=== PATIENT | female | born 1990 | race Hispanic/Latino ===

== ENCOUNTER → 2019-11-19 | Day surgery (SDC) | payer OTHER ==
[2019-11-10 10:41] LABS: BASOPHILS % 0.4 % (0.0-1.0); EOSINOPHILS # (AUTO) 0.1 (0.0-0.4); EOSINOPHILS % 1.8 % (0.0-6.0); HEMATOCRIT 41.2 % (34.2-44.1); HEMOGLOBIN 13.1 g/dL (12.0-16.0); LYMPHOCYTES # (AUTO) 2.4 (1.0-3.2); LYMPHOCYTES % 36.1 % (18.0-39.1); MEAN CORPUSCULAR HEMOGLOBIN 26.9 pg (28-32); MEAN CORPUSCULAR HGB CONC 31.8 g/dL (31-35); MEAN CORPUSCULAR VOLUME 84.6 fL (81-99); MONOCYTES # (AUTO) 0.5 (0.2-0.8); MONOCYTES % 7.4 % (4.4-11.3); NEUTROPHILS # (AUTO) 3.7 (2.1-6.9); PLATELET COUNT 251 x10e3/uL (140-360); RED BLOOD COUNT 4.87 x10e6/uL (3.6-5.1); RED CELL DISTRIBUTION WIDTH 13.3 % (11.7-14.4)
[2019-11-10 10:48] LABS: CLARITY,URINE CLEAR (CLEAR); COLOR,URINE YELLOW (YELLOW)
[2019-11-10 10:49] LABS: BILIRUBIN,URINE NEGATIVE (NEGATIVE); KETONES,URINE NEGATIVE (NEGATIVE); LEUKOCYTE ESTERASE ,URINE TRACE (NEGATIVE); NITRITE,URINE NEGATIVE (NEGATIVE); PROTEIN,URINE DIPSTICK NEGATIVE (NEGATIVE); URINE UROBILINOGEN 0.2 mg/dL (0.2 - 1)
[2019-11-10 11:02] LABS: ALANINE AMINOTRANSFERASE 17 IU/L (0-55); ALBUMIN 4.2 g/dL (3.5-5.0); ALBUMIN/GLOBULIN RATIO 1.2 (0.8-2.0); ALKALINE PHOSPHATASE 87 IU/L (40-150); ANION GAP 13.1 mmol/L (8-16); BLOOD UREA NITROGEN 10 mg/dL (7-26); BUN/CREATININE RATIO 13 (6-25); CALCIUM 9.4 mg/dL (8.4-10.2); CARBON DIOXIDE 25 mmol/L (22-29); CHLORIDE 108 mmol/L (98-107); CREATININE, SERUM 0.77 mg/dL (0.57-1.11); EST GLOMERULAR FILTRATION RATE > 60 ML/MIN (60-); GLUCOSE 82 mg/dL (74-118); POTASSIUM 4.1 mmol/L (3.5-5.1); SODIUM 142 mmol/L (136-145)
[~2019-11-19] MED LIST: ACETAMINOPHEN 1000 MG/100 ML IV ONE; BUPIVACAINE 0.25% 30ML SDV INJ ONE; DEXAMETHASONE SOD PHOS INJ 4 MG/ML VIAL ONE; FENTANYL CITRATE/PF 100MCG/2 ML INJ ONE; LIDOCAINE HCL 2% LOCAL INJ 5 ML SDV VIAL INJ ONE; MIDAZOLAM HCL 2 MG/2 ML VIAL ONE; ONDANSETRON HCL INJ 2MG/ML 2ML 2 MG/ML VIAL ONE; PROPOFOL IV EMULSION 10 MG/ML 20 ML VIAL ONE; ROCURONIUM BROMIDE 10 MG/ML 5ML VIAL ONE; SEVOFLURANE INHAL SOLN 250 ML PEN BTL ONE; TYLENOL WITH C1 EACH PO
--- OUTSIDE RECORDS SUMMARY | 2019-11-19 05:43 | XMS REPORT ---
Author [facility] Address Unknown Phone Unavailable Care Team Providers Care Wind Instrument Repairer Name Role Phone UNKNOWN, REFFERING PP Unavailable LAURA DIAS Unavailable Unavailable Payers Payer Name Policy Type Policy Number Effective Date Expiration Date Problems This patient has no known problems. Allergies, Adverse Reactions, Alerts Allergy Name Allergy Type Status Severity Reaction(s) Onset Date Inactive Date Treating Clinician Comments No Known Allergies DA Active U 2019-10-13 00:00:00 No Known Allergies DA Active U 2018-03-21 00:00:00 Medications This patient has no known medications. Encounters Start Date/Time End Date/Time Encounter Type Admission Type Attending Clinicians Care Facility Care Department Encounter ID 2017-07-30 10:01:00 2017-07-30 10:01:00 Emergency E LAURA DIAS [facility] [id number] Results Test Description Test Time Test Comments Text Results Atomic Results Result Comments - US ABDOMEN LTD 2019-10-13 18:44:00 Name: CONRADDOUGLAS IRVING [employer] : 1990 Age/S: 29 / F [address] [facility] Unit #: [id number] Loc: KIERA [place] [address] Phys: Markell Kramer NP Acct: [id number] Dis Date: Status: REG ER PHONE #: [phone] Exam Date: 10/13/2019 1843 FAX #: [phone] Reason: Abdominal Pain EXAMS: CPT CODE: [id number] ABDOMEN LTD [id number] REASON FOR EXAM: Abdominal Pain EXAM ORDER DATE: 10/13/2019 5:56 PM Ordering: Markell Kramer NP Attending:Ld Genao MD Location: PROCEDURE: - US ABDOMEN LTD FINDINGS: The liver is unremarkable. There is no evidence of focal mass identified. The pancreas is within normal limits. The right kidney measures 8.1 x 3.7 cm. There is no evidence of hydronephrosis. There is no evidence of nephrolithiasis. There is no evidence of renal mass. The gallbladder is contracted and full of gallstones. No evidence of gallbladder wall thickening or pericholecystic fluid. The common bile duct measures 0.3 cm. There is no evidence of ascites. The aorta and IVC are within normal limits. The portal vein is patent with hepatopetal flow IMPRESSION: C ontracted gallbladder full of gallstones at 1844 Reported and signed by: Jose Luis Jimenez M.D. CC: Ld Genao MD; Viviane De Paz MD; Markell Kramer NP Technologist: Ninfa Michaels RDMS Trnscb Date/Time: 10/13/2019 (1843) [email or web address] Orig Print D/T: S: 10/13/2019 (1847) Probe: PAGE 1 Signed Report BASIC METABOLIC PANEL 2019-10-13 18:39:00 SODIUM (test code=NA) 141 mmol/L 136-145 POTASSIUM (test code=K) 3.7 mmol/L 3.5-5.1 CHLORIDE (test code=CL) 107.0 mmol/L 98-107 CARBON DIOXIDE (test code=CO2) 28.0 mmol/L 21-32 ANION GAP (test code=GAP) 9.7 10-20 GLUCOSE (test code=GLU) 90 mg/dL 74-106 BLOOD UREA NITROGEN (test code=BUN) 12 mg/dL 7-18 GLOMERULAR FILTRATION RATE (test code=GFR) 53 mL/min >=60 Estimated GFR by using Modified MDRD formula.Chronic kidney disease is defined as either kidney damageor GFR <60 mL/min/1.73 m2 for >3 months. CREATININE (test code=CREAT) 1.20 mg/dL 0.55-1.02 Note change in reference range due to change in reagent. BUN/CREATININE RATIO (test code=BUN/CREA) 10.0 10-20 CALCIUM (test code=CA) 9.3 mg/dL 8.5-10.1 HEPATIC FUNCTION [id number] 18:39:00* Test Item Value Reference Range Comments TOTAL PROTEIN (test code=PROT) 8.2 gram/dL 6.4-8.2 ALBUMIN (test code=ALB) 3.8 g/dL 3.4-5.0 GLOBULIN (test code=GLOB) 4.4 gram/dL 2.7-4.2 ALBUMIN/GLOBULIN RATIO (test code=A/G) 0.9 0.75-1.50 BILIRUBIN TOTAL (test code=BILT) 0.20 mg/dL 0.0-1.0 BILIRUBIN DIRECT (test code=BILD) 0.06 mg/dL 0.0-0.20 SGOT/AST (test code=AST) 14 IUnit/L 15-37 SGPT/ALT (test code=ALT) 25 IUnit/L 12-78 ALKALINE PHOSPHATASE TOTAL (test code=ALKP) 109 IUnit/L 45-117 Note change in reference range due to change in reagent. [id number] 18:39:00* Test Item Value Reference Range Comments LIPASE (test code=LIP) 160 U/L 73.0-393.0 HCG SERUM [id number] 18:39:00* Test Item Value Reference Range Comments HCG SERUM QUAL (test code=HCGQL) NEGATIVE BASIC METABOLIC [id number] 18:39:00* Test Item Value Reference Range Comments SODIUM (test code=NA) 141 mmol/L 136-145 POTASSIUM (test code=K) 3.7 mmol/L 3.5-5.1 CHLORIDE (test code=CL) 107.0 mmol/L 98-107 CARBON DIOXIDE (test code=CO2) 28.0 mmol/L 21-32 ANION GAP (test code=GAP) 9.7 10-20 GLUCOSE (test code=GLU) 90 mg/dL 74-106 BLOOD UREA NITROGEN (test code=BUN) 12 mg/dL 7-18 GLOMERULAR FILTRATION RATE (test code=GFR) 53 mL/min >=60 Estimated GFR by using Modified MDRD formula.Chronic kidney disease is defined as either kidney damageor GFR <60 mL/min/1.73 m2 for >3 months. CREATININE (test code=CREAT) 1.20 mg/dL 0.55-1.02 Note change in reference range due to change in reagent. BUN/CREATININE RATIO (test code=BUN/CREA) 10.0 10-20 CALCIUM (test code=CA) 9.3 mg/dL 8.5-10.1 HEPATIC FUNCTION [id number] 18:39:00* Test Item Value Reference Range Comments TOTAL PROTEIN (test code=PROT) 8.2 gram/dL 6.4-8.2 ALBUMIN (test code=ALB) 3.8 g/dL 3.4-5.0 GLOBULIN (test code=GLOB) 4.4 gram/dL 2.7-4.2 ALBUMIN/GLOBULIN RATIO (test code=A/G) 0.9 0.75-1.50 BILIRUBIN TOTAL (test code=BILT) 0.20 mg/dL 0.0-1.0 BILIRUBIN DIRECT (test code=BILD) 0.06 mg/dL 0.0-0.20 SGOT/AST (test code=AST) 14 IUnit/L 15-37 SGPT/ALT (test code=ALT) 25 IUnit/L 12-78 ALKALINE PHOSPHATASE TOTAL (test code=ALKP) 109 IUnit/L 45-117 Note change in reference range due to change in reagent. [id number] 18:39:00* Test Item Value Reference Range Comments LIPASE (test code=LIP) 160 U/L 73.0-393.0 HCG SERUM [id number] 18:39:00* Test Item Value Reference Range Comments HCG SERUM QUAL (test code=HCGQL) NEGATIVE NEGATIVE This HCGQL test is NOT applicable for MALE patients.Check with nurse about probable order error.If Tumor Marker Test needed, nurse should order test "HCGTU"(Test #550.37026) URINALYSIS [id number] 18:36:00* Test Item Value Reference Range Comments UA COLOR (test code=COLU) Light-Yellow YELLOW UA APPEARANCE (test code=APPU) CLEAR CLEAR UA GLUCOSE DIPSTICK (test code=DGLUU) NEGATIVE mg/dL NEGATIVE UA BILIRUBIN DIPSTICK (test code=BILU) NEGATIVE mg/dL NEGATIVE UA KETONE DIPSTICK (test code=KETU) NEGATIVE mg/dL NEGATIVE UA SPECIFIC GRAVITY (test code=SGU) 1.013 1.001-1.035 UA BLOOD DIPSTICK (test code=ALISIA) Negative mg/dL NEGATIVE UA PH DIPSTICK (test code=WOLFGANG) 5.0 5.0-8.0 UA PROTEIN DIPSTICK (test code=PROU) NEGATIVE mg/dL NEGATIVE UA UROBILINIOGEN DIPSTICK (test code=URO) Normal mg/dL NEGATIVE UA NITRITE DIPSTICK (test code=JAMES) NEGATIVE NEGATIVE UA LEUKOCYTE ESTERASE W REFLEX (test code=LEUUR) 250 Maru/uL (2+) Maru/uL NEGATIVE UA WBC (test code=WBCU) 6-10 per HPF 0-5 UA RBC (test code=RBCU) 0-2 #/HPF 0-5 UA EPITHELIAL CELLS (test code=EPIU) FEW per HPF FEW UA BACTERIA (test code=BACU) FEW #/HPF NONE UA MUCUS (test code=MUCU) FEW #/LPF FEW Urine Source? Clean CatchBASIC METABOLIC [id number] 18:30:00* Test Item Value Reference Range Comments SODIUM (test code=NA) 141 mmol/L 136-145 POTASSIUM (test code=K) 3.7 mmol/L 3.5-5.1 CHLORIDE (test code=CL) 107.0 mmol/L 98-107 CARBON DIOXIDE (test code=CO2) mmol/L 21-32 ANION GAP (test code=GAP) 10-20 GLUCOSE (test code=GLU) mg/dL 74-106 BLOOD UREA NITROGEN (test code=BUN) mg/dL 7-18 GLOMERULAR FILTRATION RATE (test code=GFR) mL/min >=60 CREATININE (test code=CREAT) mg/dL 0.55-1.02 BUN/CREATININE RATIO (test code=BUN/CREA) 10-20 CALCIUM (test code=CA) mg/dL 8.5-10.1 HEPATIC FUNCTION [id number] 18:30:00* Test Item Value Reference Range Comments TOTAL PROTEIN (test code=PROT) gram/dL 6.4-8.2 ALBUMIN (test code=ALB) g/dL 3.4-5.0 GLOBULIN (test code=GLOB) gram/dL 2.7-4.2 ALBUMIN/GLOBULIN RATIO (test code=A/G) 0.75-1.50 BILIRUBIN TOTAL (test code=BILT) mg/dL 0.0-1.0 BILIRUBIN DIRECT (test code=BILD) mg/dL 0.0-0.20 SGOT/AST (test code=AST) IUnit/L 15-37 SGPT/ALT (test code=ALT) IUnit/L 12-78 ALKALINE PHOSPHATASE TOTAL (test code=ALKP) IUnit/L 45-117 [id number] 18:30:00* Test Item Value Reference Range Comments LIPASE (test code=LIP) U/L 73.0-393.0 HCG SERUM [id number] 18:30:00* Test Item Value Reference Range Comments HCG SERUM QUAL (test code=HCGQL) NEGATIVE CBC W/O [id number] 18:21:00* Test Item Value Reference Range Comments WHITE BLOOD CELL (test code=WBC) 9.9 K/mm3 4.5-12.5 RED BLOOD CELL (test code=RBC) 4.99 mill/mm3 3.7-5.2 HEMOGLOBIN (test code=HGB) 13.3 gram/dL 11.5-15.5 HEMATOCRIT (test code=HCT) 42.0 % 36.0-46.0 MEAN CELL VOLUME (test code=MCV) 84.2 fL 80-98 MEAN CELL HGB (test code=MCH) 26.7 picogram 27.0-33.0 MEAN CELL HGB CONCETRATION (test code=MCHC) 31.7 gram/dL 33.0-36.0 RED CELL DISTRIBUTION WIDTH (test code=RDW) 13.2 % 11.6-16.2 PLATELET COUNT (test code=PLT) 269 K/mm3 150-450 MEAN PLATELET VOLUME (test code=MPV) 11.8 fL 6.7-11.0 [facility] [id number] 21:22:59* Test Item Value Reference Range Comments Methodology (test code=Methodology) Test-Tube(TT) Anti-A (test code=Anti-A) 4+ Anti-B (test code=Anti-B) 0 Anti-AB (test code=Anti-AB) NT Anti-D (test code=Anti-D) 4+ ABORh Retype (test code=ABORh Retype) A POS 3C ABSC [id number] 18:28:36* Test Item Value Reference Range Comments SC1 IS (test code=SC1 IS) NT SC2 IS (test code=SC2 IS) NT SC3 IS (test code=SC3 IS) NT SC1 37 (test code=SC1 37) 0 SC2 37 (test code=SC2 37) 0 SC3 37 (test code=SC3 37) 0 SC1 AHG (test code=SC1 AHG) 0 SC2 AHG (test code=SC2 AHG) 0 SC3 AHG (test code=SC3 AHG) 0 SC1 CC (test code=SC1 CC) 2+ SC2 CC (test code=SC2 CC) 2+ SC3 CC (test code=SC3 CC) 2+ Antibody Screen (3C) (test code=Antibody Screen (3C)) Negative ABSC [id number] 18:15:49* Test Item Value Reference Range Comments Previous History (test code=Previous History) No Prev History BBID (test code=BBID) [id number] Methodology (test code=Methodology) Test-Tube(TT) Anti-A (test code=Anti-A) 4+ Anti-B (test code=Anti-B) 0 Anti-D (test code=Anti-D) 4+ DCon (test code=DCon) NT A1 (test code=A1) 0 B cells (test code=B cells) 4+ ABORh (test code=ABORh) A POS US OB Less Thn 14 wks w/TVS if [id number] 15:29:13Patient: DOUGLAS COOPER Date/Time04/22/2019 15:00 CDTReason for ExamVaginal bleedingReportTRANSABDOMINAL AND TRANSVAGINAL PELVIC SONOGRAMLOCATION CODE: R 16HISTORY: Vaginal bleeding. Spontaneous as per patient. LMP: 02/24/2019. G 4, P 1, AB 2.TECHNIQUE: [facility] sonographic images are provided for interpretation. Transvaginal and transa bdominal approaches.FINDINGS:The uterus measures 9 x 5.5 x 4.1 cm with a 1.3 cm endometrial stripe. The endometrial is heterogeneous. There is retained fluid in the endocervix which is distended to 6 mm diameter.The right ovary measures 2 x 1.6 x 1.4 cm and the left ovary measures 2.9 x 2.1 x 1.7 cm. Complex cyst at the left ovary measuring 1.5 x 1.4 x 1.4 cm, likely with residual post luteum. Nor mal arterial flow is demonstrated to both ovaries.No evidence of free pelvic flu id.IMPRESSION:1. Complex appearance to the endometrium, thickening up to 1.3 cm, suspect residual retained products of conception. Distended endocervix to 6 mm, also with residual complex fluid.2. Complex left ovarian cyst, 1.5 cm. Suggesti ve of residual corpus luteum.3. However follow-up up serial beta hCG and repeat ultrasound as warranted. Final Dictated by: MD Michael, Omari bourne FDictated DT/TM: 04/22/2019 3:25 pmSigned by: MD Rodriguez Eniola FSigned (Electronic Signature): 04/22/2019 3:29 pmBeta HCG Quantitative 2019-04-22 14:29:53* Test Item Value Reference Range Comments HCG, Beta Quantitative (test code=HCG, Beta Quantitative) 48533.00 mIU/mL Weeks of Gestation Ranges (mIu/mL)3 weeks 5.40-72.04 weeks 10.2-7085 weeks 217- 76871 weeks 152-519720 weeks 4059-1027674 weeks 16563-8402127 weeks 48412- 62191223 weeks 49056-06316695 weeks 31847-41912526 weeks 31497-8068734 weeks 40959-4067016 weeks 8904-0769768 weeks 8240-0205201 weeks 9649-71497 Complete Blood Count with [id number] 14:09:26* Test Item Value Reference Range Comments WBC (test code=WBC) 9.8 x10 4.4-10.5 RBC (test code=RBC) 4.96 x10 3.75-5.20 Hgb (test code=Hgb) 13.4 g/dL 12.2-14.8 Hct (test code=Hct) 41.6 % 36.5-44.4 MCV (test code=MCV) 83.90 fL 80.00-100.00 MCHC (test code=MCHC) 32.20 g/dL 32.00-37.50 RDW CV (test code=RDW CV) 14.5 % 11.5-14.5 MCH (test code=MCH) 27.0 pg 27.0-32.5 Platelets (test code=Platelets) 291.0 x10 140.0-440.0 MPV (test code=MPV) 11.7 fL Slide Review (test code=Slide Review) Auto Auto Result created by [email or web address] nRBC (test code=nRBC) 0 NRBC Abs (test code=NRBC Abs) 0.00 x10 IPF (test code=IPF) 0 % Automated [id number] 14:09:26* Test Item Value Reference Range Comments Neutro Auto (test code=Neutro Auto) 63.4 % 36.0-70.0 Lymph Auto (test code=Lymph Auto) 27.9 % 12.0-44.0 Bertie Auto (test code=Bertie Auto) 6.7 % 0.0-11.0 Eos, Auto (test code=Eos, Auto) 1.2 % 0.0-7.0 Basophil Auto (test code=Basophil Auto) 0.5 % 0.0-2.0 Neutro Absolute (test code=Neutro Absolute) 6.2 x10 1.6-7.4 Lymph Absolute (test code=Lymph Absolute) 2.74 x10 .50-4.60 Bertie Absolute (test code=Bertie Absolute) .66 x10 .00-1.20 Eos Absolute (test code=Eos Absolute) 0.12 x10 0.00-0.74 Baso Absolute (test code=Baso Absolute) 0.05 x10 0.00-0.21 IG [id number] 14:09:26* Test Item Value Reference Range Comments IG (test code=IG) 0.3 % 0.0-5.0 IG Abs (test code=IG Abs) 0 x10 US OB 1ST TRIMESTER, [id number] 13:25:41US TRANSVAGINAL, US OB 1ST TRIMESTER, SINGLECLINICAL HISTORY: Vaginal bleeding; LMP 06/17/2017; beta-hCG [id number] pertechnologist notesCOMPARISON: None available.TECHNIQUE: Transabdominal and transvaginal ultrasound examination of thepelvis was performed.FINDINGS: The uterus is of normal size, shape, and echogenicity. It measures 8.9x 4.9 x 6.1 cm.A gestational sac is seen in the upper endometrial cavity. A 2.7 cmsubchorionic hemorrhage is seen along the anterior gestational sac. pole, and yolk sac are seen within the gestational sac.Mean sac diameter is 2.31 cm, which corresponds to gestational age of 7weeks, 3 daysCrown-rump length is 5.12 mm, which corresponds to gestational age of 6weeks, 2 daysFetal heart tones are present at a rate of 161 beats per minute.The bilateral ovaries are normal in size, shape, and echogenicity.Vascular flow is documented; there is no evidence of torsion. The right ovary measures 4.6 x 2.5 x 3.3 cm. The left ovary measures 1.7 x 1.4 x 1.4 cm. Approximately 2.1 cm cyst in the right ovary may be a corpus lutealcyst.No mass is seen in the cul-de-sac or bilateral adnexa. There is no freefluid.IMPRESSION:1. Findings compatible with viable intrauterine atapproximate gestational age of 6 weeks, 6 days.2. Nonspecific small subchorionic hemorrhage.3. Approximately 2.1 cm right ovarian cyst may be a c orpus luteal cyst.Recommend continued follow-up with serial beta-hCG levels and pelvicultrasound as indicated.US [id number] 13:25:41US TRANSVAGINAL, US OB 1ST TRIMESTER, SINGLECLINICAL HISTORY: Vaginal bleeding; LMP 06/17/2017; beta-hCG 42462 pertechnologist notesCOMPARISON: None available.TECHNIQUE: Transabdominal and transvaginal ultrasound examination of thepelvis was performed.FINDINGS: The uterus is of normal size, shape, and echogenicity. It measures 8.9x 4.9 x 6.1 cm.A gestational sac is seen in the upper endometrial ca vity. A 2.7 cmsubchorionic hemorrhage is seen along the anterior gestational sa c. pole, and yolk sac are seen within the gestational sac.Mean sac diameter is 2.31 cm, which corresponds to gestational age of 7weeks, 3 daysCrown-rump le ngth is 5.12 mm, which corresponds to gestational age of 6weeks, 2 daysFetal hea rt tones are present at a rate of 161 beats per minute.The bilateral ovaries are normal in size, shape, and echogenicity.Vascular flow is documented; there is no evidence of torsion. The right ovary measures 4.6 x 2.5 x 3.3 cm. The left ovary measures 1.7 x 1.4 x 1.4 cm. Approximately 2.1 cm cyst in the right ovary may be a corpus lutealcyst.No mass is seen in the cul-de-sac or bilateral adnexa. There is no freefluid.IMPRESSION:1. Findings compatible with viable intrauterine atapproximate gestational age of 6 weeks, 6 days.2. Nonspecific small subchorionic hemorrhage.3. Approximately 2.1 cm right ovarian cyst may be a c orpus luteal cyst.Recommend continued follow-up with serial beta-hCG levels and pelvicultrasound as indicated.Blood Type and [id number] 13:07:00* Test Item Value Reference Range Comments ABO type (test code=ABO) A Rh Type (test code=RH) Positive Comprehensive Metabolic [id number] 12:06:00* Test Item Value Reference Range Comments Sodium (test code=NA) 136 mmol/L 135-145 Potassium (test code=K) 4.7 mmol/L 3.5-5.1 Chloride (test code=CL) 102 mmol/L 98-105 Carbon Dioxide (test code=CO2) 23 mmol/L 22-29 Glucose (test code=GLU) 96 mg/dL 70-115 Blood Urea Nitrogen (test code=BUN) 7 mg/dL 6-20 Creatinine (test code=CREAT) 0.7 mg/dL 0.5-0.9 Calcium (test code=CA) 9.4 mg/dL 8.3-10.5 Prot Total (test code=TP) 7.4 g/dL 6.4-8.3 Albumin (test code=ALB) 4.2 g/dL 3.5-5.2 A/G Ratio (test code=AGRATIO) 1.3 Ratio Globulin (test code=GLOB) 3.2 2.9-3.1 Bili Total (test code=TBIL) 0.2 mg/dL 0.1-0.9 Alk Phos (test code=APHOS) 77 U/L 35-104 AST (test code=AST) 38 U/L 1-32 ALT (test code=ALT) 35 U/L 1-33 BUN/Creatinine Ratio (test code=BCRATIO) 10.0 Anion Gap (test code=AGAP) 11 mmol/L 7-16 Estimated GFR (test code=GFR) >60 mL/min/1.73m2 eGFR (estimated Glomerular Filtration Rate) is an estimated value,calculated from the patient's serum creatinine using the MDRD equation.It is NOT the patient's actual GFR. The eGFR provides a more clinicallyuseful measure of kidney disease than serum creatinine alone.This calculation takes sex and race into account, if the informationis provided. If the race is not provided, and the patient isAfrican-Bermudian, multiply by 1.212. If sex is not provided, and thepatient is female, multiply by 0.742. Results for patients <18 years ofage have not been validated by the MDRD study and should be interpretedwith caution.eGFR Result Interpretation:eGFR > or=60 is in the Normal RangeeGFR < 60 may mean kidney diseaseeGFR < 15 may mean kidney failureRanges recommended by the National Kidney Foundat ion,http://nkdep.nih.gov BHCG, Serum, [id number] 11:53:00* Test Item Value Reference Range Comments B hCG, Quant (test code=BHCGQT) 54623 mIU/mL Weeks of Gestation Ranges (mIU/mL)3 weeks 5.40 - 72.04 weeks 10.2 - 7085 weeks 217 - 39622 weeks 152 - 113304 weeks 4059 - 7804433 weeks 73786 - 6633333 weeks 69757 - 14421925 weeks 70370 - 23881150 weeks 05791 - 54431248 weeks 90999 - 2859281 weeks 58319 - 8712078 weeks 7689 - 2600405 weeks 6841 - 6908059 weeks 6453 - 49001 CBC with [id number] 11:52:00* Test Item Value Reference Range Comments WBC (test code=WBC) 10.3 K/cumm 4.4-10.5 RBC (test code=RBC) 4.53 M/cumm 3.75-5.20 Hemoglobin (test code=HGB) 13.3 gm/dL 12.2-14.8 Hematocrit (test code=HCT) 38.7 % 36.5-44.4 MCV (test code=MCV) 85.4 fL 80-100 MCH (test code=MCH) 29.3 pg 27.0-32.5 MCHC (test code=MCHC) 34.3 g/dL 32.0-37.5 RDW (test code=RDW) 12.5 % 11.5-14.5 Platelet Count (test code=PLTCT) 287 K/cumm 140-440 MPV (test code=MPV) 9.4 fL Diff Method (test code=DIFFM) Auto Neutrophil (test code=NEUT) 70.5 % 36-70 Lymphocyte (test code=LYMPH) 23.9 % 12-44 Monocyte (test code=MONO) 4.2 % 0-11 Eosinophil (test code=EOS) 1.1 % 0-7 Basophil (test code=BASO) 0.3 % 0-2 Neutro Abs (test code=ANEUT) 7.3 K/cumm 1.6-7.4 Lymph Abs (test code=ALYMPH) 2.5 K/cumm 0.5-4.6 Bertie Abs (test code=AMONO) 0.4 K/cumm 0.0-1.2 Eos Abs (test code=AEOS) 0.12 K/cumm 0.00-0.74 Baso Abs (test code=ABASO) 0.0 K/cumm 0.00-0.21 Urinalysis [id number] 11:30:00* Test Item Value Reference Range Comments Color (test code=COLOR) Yellow Yellow,Straw,Pl yellow Clarity (test code=CLAR) Sl Cloudy Clear Specific Darden (test code=SPGR) 1.023 1.001-1.035 pH (test code=PH) 9.0 5.0-9.0 Ketone (test code=KET) Negative mg/dL Negative Glucose (test code=GLUCUR) Negative mg/dL Negative Protein (test code=PROT) Negative mg/dL Negative Bilirubin (test code=BILI) Negative mg/dL Negative Occult Blood (test code=UDOB) Large Negative Urobilinogen (test code=UROB) 0.2 mg/dL 0.2-1.0 Nitrite (test code=NIT) Negative Negative Leuk Esterase (test code=LEUK) Moderate Negative Micros Exam (test code=MEXAM) Indicated Epithelial Cells (test code=EPI) Moderate /LPF 0-30 WBC, Urine (test code=UWBC) 11-20 /HPF 0-5 RBC, Urine (test code=URBC) 4-5 /HPF 0-5 Bacteria (test code=BACT) Moderate /HPF
--- NOTE | 2019-11-19 10:34 | Operative Report ---
DATE OF PROCEDURE: SURGEON: Storm Wiley MD PREOPERATIVE DIAGNOSIS: Chronic cholecystitis. POSTOPERATIVE DIAGNOSIS: Chronic cholecystitis. PROCEDURE PERFORMED: Laparoscopic cholecystectomy. ANESTHESIA: General endotracheal. ESTIMATED BLOOD LOSS: Minimal. DRAINS: None. COMPLICATIONS: None. ICT PROGRAMMER: Asiya Fields. INDICATION AND FINDINGS: The patient is a 29-year-old female admitted for laparoscopic cholecystectomy because of symptomatic cholelithiasis. She has been complaining of several weeks of right upper quadrant pain, associated with ingestion of fatty foot. Preoperatively, she had an ultrasound that revealed cholelithiasis. No ductal dilatation. Liver chemistries were normal. Intraoperative findings were multiple stones. No ductal dilatation. No evidence of acute cholecystitis. DESCRIPTION OF PROCEDURE: With the patient lying on the operative table in the supine position after administration of general anesthesia, she was prepped and draped for laparoscopic cholecystectomy. A pneumoperitoneum was insufflated to 15 mm of pressures after the saline drop test was performed. A 10/11 trocar was placed in the umbilical site and the remaining three ports, one 10 mm subxiphoid and two 5 mm trocars in the right upper quadrant, right midclavicular line, and right anterior axial lines were then placed. The gallbladder was retracted cephalad using grasping forceps and the dissection was begun, exposing the cystic duct at the neck of the gallbladder. Cystic duct was traced to the common bile duct and at that point, it was clipped proximal to that, once proximal to that and then distally twice. The cystic artery was also handled between titanium clips. Then, the gallbladder was taken down from the liver bed, using electrocautery dissection. The gallbladder was detached. It was then placed in an endobag and removed. The right upper quadrant was inspected. There was some oozing coming from the liver bed that was cauterized, after ascertaining the hemostasis was absolute. After ascertaining, there was no bile leak or no bowel injury that could be seen. The wounds were closed using 0-Vicryl for the umbilical site and 3-0 Vicryl for the subcutaneous tissue in that location as well as the subxiphoid port and the skin of all the ports were closed using adrian. Sterile dressing was applied. A 0.25% Marcaine with epinephrine was given at the end of the case to all the port sites. The patient tolerated the procedure well, was taken to recovery room in stable condition. MD NELSON Dickson/WHITLEY /[id number]
[2019-11-19 11:00] VITALS: BP 157/99
== END | disposition home or self-care (01) ==
LOC: OR 05:41
PROVIDERS: ATTEND Surgery
DX: K80.10 Calculus of gallbladder with chronic cholecystitis without obstruction (principal); Z01.812 Encounter for preprocedural laboratory examination
CPT/HCPCS: 36415; 80053; 81003; 81025; 85025; 88304; C1766; J1100; J2001; J2250; J2405; J3010

== ENCOUNTER → 2019-11-24 | Outpatient (CLI) | payer OTHER ==
[~2019-11-24] MED LIST changes: -ACETAMINOPHEN 1000 MG/100 ML IV ONE; -BUPIVACAINE 0.25% 30ML SDV INJ ONE; -DEXAMETHASONE SOD PHOS INJ 4 MG/ML VIAL ONE; -FENTANYL CITRATE/PF 100MCG/2 ML INJ ONE; -LIDOCAINE HCL 2% LOCAL INJ 5 ML SDV VIAL INJ ONE; -MIDAZOLAM HCL 2 MG/2 ML VIAL ONE; -ONDANSETRON HCL INJ 2MG/ML 2ML 2 MG/ML VIAL ONE; -PROPOFOL IV EMULSION 10 MG/ML 20 ML VIAL ONE; -ROCURONIUM BROMIDE 10 MG/ML 5ML VIAL ONE; -SEVOFLURANE INHAL SOLN 250 ML PEN BTL ONE
[2019-11-24 16:53] LABS: BASOPHILS # (AUTO) 0.1 (0.0-0.1); BASOPHILS % 0.4 % (0.0-1.0); EOSINOPHILS # (AUTO) 0.2 (0.0-0.4); EOSINOPHILS % 1.2 % (0.0-6.0); HEMATOCRIT 39.9 % (34.2-44.1); LYMPHOCYTES # (AUTO) 2.8 (1.0-3.2); LYMPHOCYTES % 21.1 % (18.0-39.1); MEAN CORPUSCULAR HEMOGLOBIN 26.6 pg (28-32); MEAN CORPUSCULAR HGB CONC 32.6 g/dL (31-35); MEAN CORPUSCULAR VOLUME 81.6 fL (81-99); MONOCYTES # (AUTO) 0.6 (0.2-0.8); MONOCYTES % 4.7 % (4.4-11.3); NEUTROPHILS # (AUTO) 9.5 (2.1-6.9); NEUTROPHILS % 72.3 % (38.7-80.0); PLATELET COUNT 322 x10e3/uL (140-360); RED BLOOD COUNT 4.89 x10e6/uL (3.6-5.1); RED CELL DISTRIBUTION WIDTH 13.3 % (11.7-14.4)
[2019-11-24 17:03] LABS: CHLORIDE 106 mmol/L (98-107); SODIUM 137 mmol/L (136-145)
[2019-11-24 17:20] LABS: ALANINE AMINOTRANSFERASE 231 IU/L (0-55); ALKALINE PHOSPHATASE 344 IU/L (40-150); AMYLASE 22 U/L (25-125); BLOOD UREA NITROGEN 8 mg/dL (7-26); BUN/CREATININE RATIO 11 (6-25); CARBON DIOXIDE 24 mmol/L (22-29); CREATININE, SERUM 0.71 mg/dL (0.57-1.11); EST GLOMERULAR FILTRATION RATE > 60 ML/MIN (60-); GLUCOSE 93 mg/dL (74-118)
== END ==
LOC: LAB 16:35
PROVIDERS: ATTEND Surgery
DX: R10.9 Unspecified abdominal pain (principal); Z98.890 Other specified postprocedural states
CPT/HCPCS: 36415; 80053; 82150; 85025

== ENCOUNTER 2019-11-25 19:18 | Emergency (ER) | payer OTHER ==
[~2019-11-25] VITALS: Ht 165.1 cm; Wt 77.1 kg
[2019-11-25] MEDS ORDERED: DIATRIZOATE MEGL/DIATRIZOA SOD 30 ML BTL PO ONE (20:21)
[2019-11-25 20:41] LABS: BASOPHILS % 0.4 % (0.0-1.0); EOSINOPHILS # (AUTO) 0.2 (0.0-0.4); EOSINOPHILS % 1.4 % (0.0-6.0); HEMATOCRIT 41.8 % (34.2-44.1); HEMOGLOBIN 13.4 g/dL (12.0-16.0); LYMPHOCYTES # (AUTO) 3.1 (1.0-3.2); LYMPHOCYTES % 29.9 % (18.0-39.1); MEAN CORPUSCULAR HEMOGLOBIN 26.6 pg (28-32); MEAN CORPUSCULAR HGB CONC 32.1 g/dL (31-35); MEAN CORPUSCULAR VOLUME 83.1 fL (81-99); MONOCYTES # (AUTO) 0.6 (0.2-0.8); MONOCYTES % 5.6 % (4.4-11.3); NEUTROPHILS # (AUTO) 6.6 (2.1-6.9); NEUTROPHILS % 62.4 % (38.7-80.0); PLATELET COUNT 307 x10e3/uL (140-360); RED BLOOD COUNT 5.03 x10e6/uL (3.6-5.1); RED CELL DISTRIBUTION WIDTH 13.4 % (11.7-14.4)
[2019-11-25 20:48] LABS: BILIRUBIN,URINE NEGATIVE (NEGATIVE); CLARITY,URINE CLEAR (CLEAR); COLOR,URINE YELLOW (YELLOW); KETONES,URINE NEGATIVE (NEGATIVE); LEUKOCYTE ESTERASE ,URINE TRACE (NEGATIVE); NITRITE,URINE NEGATIVE (NEGATIVE); PROTEIN,URINE DIPSTICK NEGATIVE (NEGATIVE); URINE UROBILINOGEN 0.2 mg/dL (0.2 - 1)
[2019-11-25 20:51] LABS: INR 0.96; PARTIAL THROMBOPLASTIN TIME 29.7 seconds (23.8-35.5); PROTHROMBIN TIME 13.4 seconds (11.9-14.5)
[2019-11-25 20:56] LABS: BACTERIA,URINE MODERATE /HPF; EPITHELIAL CELLS,URINE MODERATE /LPF; RBC,URINE 0-5 /HPF (0-5); WBC,URINE (MAN) 0-5 /HPF (0-5)
[2019-11-25 21:00] LABS: ALANINE AMINOTRANSFERASE 182 IU/L (0-55); ALBUMIN 4.1 g/dL (3.5-5.0); ALKALINE PHOSPHATASE 287 IU/L (40-150); ANION GAP 11.8 mmol/L (8-16); BLOOD UREA NITROGEN 8 mg/dL (7-26); BUN/CREATININE RATIO 11 (6-25); CALCIUM 9.6 mg/dL (8.4-10.2); CARBON DIOXIDE 25 mmol/L (22-29); CHLORIDE 106 mmol/L (98-107); CREATINE KINASE 124 IU/L (29-168); CREATININE, SERUM 0.71 mg/dL (0.57-1.11); EST GLOMERULAR FILTRATION RATE > 60 ML/MIN (60-); GLUCOSE 91 mg/dL (74-118); POTASSIUM 3.8 mmol/L (3.5-5.1); SODIUM 139 mmol/L (136-145)
[2019-11-25 21:01] LABS: AMYLASE 30 U/L (25-125); LIPASE 58 U/L (8-78)
[2019-11-25] MEDS ORDERED: IOPAMIDOL 370 MG/ML 200 ML INFUS..BTL INJ ONE (22:32)
[2019-11-25] MEDS ORDERED: SODIUM CHLORIDE 0.9% 50ML 50 ML ONE (22:32)
--- NOTE | 2019-11-25 22:42 | Diagnostic Imaging Report ---
ADDENDUM #1 First line of impression should read: Expected postsurgical changes of recent cholecystectomy without evidence of complication. Signed by: Tyler Roche DO on 11/25/2019 10:53 PM ORIGINAL REPORT EXAM: CT Abdomen and Pelvis WITH contrast INDICATION: Abdominal pain, recent gallbladder surgery COMPARISON: None. TECHNIQUE: Abdomen and pelvis were scanned utilizing a multidetector helical scanner from the lung base to the pubic symphysis after administration of IV contrast. Coronal and sagittal reformations were obtained. Routine protocol was performed. Scan was performed when during portal venous phase. IV CONTRAST: 100 mL of Isovue 370 ORAL CONTRAST: Gastrografin COMPLICATIONS: None RADIATION DOSE: Total DLP: 451 mGy*cm Estimated effective dose: (DLP x 0.015 x size factor) mSv CTDIvol has been reviewed. It is below the limits set by the Radiation Protocol Committee (RPC). Dose modulation, iterative reconstruction, and/or weight based adjustment of the mA/kV was utilized to reduce the radiation dose to as low as reasonably achievable. FINDINGS: LINES and TUBES: None. LOWER THORAX: Unremarkable HEPATOBILIARY: No focal hepatic lesions. No biliary ductal dilation. GALLBLADDER: There are cholecystectomy clips. SPLEEN: No splenomegaly. PANCREAS: No focal masses or ductal dilatation. ADRENALS: No adrenal nodules KIDNEYS/URETERS: Kidneys enhance symmetrically. No hydronephrosis. No cystic or solid mass lesions. No stones. GI TRACT: No abnormal distention, wall thickening, or evidence of bowel obstruction. Appendix is normal. PELVIC ORGANS/BLADDER: A 2.1 cm physiologic corpus luteum in the right ovary. LYMPH NODES: No lymphadenopathy. VESSELS: Unremarkable. PERITONEUM / RETROPERITONEUM: Trace fluid in the pelvis. No free air. BONES: Unremarkable. SOFT TISSUES: Intact and uncomplicated incisions in the upper and mid right abdomen, with overlying skin adrian.. Small fat-containing femoral hernia. IMPRESSION: 1. Expected postsurgical changes of recent cholecystectomy without evidence of consultation. 2. Periovulatory findings in the pelvis. Signed by: Tyler Roche DO on 11/25/2019 10:40 PM
[2019-11-25 23:50] VITALS: BP 122/90
== END 2019-11-26 00:05 | disposition home or self-care (01) ==
LOC: ER 19:18
DX: G89.18 Other acute postprocedural pain (principal); R10.11 Right upper quadrant pain; R10.13 Epigastric pain; R11.0 Nausea
CPT/HCPCS: 36415; 74177; 80053; 81001; 81025; 82150; 82550; 82553; 83690; 84484; 85025; 85610; 85730; 99283; Q9967

== ENCOUNTER → 2019-11-29 | Outpatient (CLI) | payer OTHER ==
[2019-11-29 16:41] LABS: ALBUMIN 3.9 g/dL (3.5-5.0); BILIRUBIN,DIRECT 0.1 mg/dL (0.0-0.5)
== END ==
LOC: LAB 15:53
PROVIDERS: ATTEND Surgery
DX: R10.9 Unspecified abdominal pain (principal); Z98.890 Other specified postprocedural states
CPT/HCPCS: 36415; 80076